=== PATIENT | male | born 1940 | race Caucasian/White ===

== ENCOUNTER → 2016-07-31 | Outpatient (CLI) | payer OTHER ==
--- NOTE | 2016-07-31 12:41 | DIAGNOSTIC IMAGING REPORT ---
LEFT ANKLE MIN 3 VIEWS CLINICAL HISTORY: LEFT FOOT AND ANKLE PAIN pain COMPARISON: None. DISCUSSION: Moderate soft tissue edema over both medial as well as lateral malleolus. Several small reactive osteophytes are present. No evidence for acute fracture or dislocation. There is no evidence for soft tissue swelling. IMPRESSION: Moderate soft tissue edema. Mild degenerative change. No acute process. Electronically signed by: Marquez Smith M.D. 07/31/2016 12:40 PM Dictated Date/Time: 07/31/2016 12:39 PM
--- NOTE | 2016-07-31 14:05 | DIAGNOSTIC IMAGING REPORT ---
LEFT FOOT MIN 3 VIEWS CLINICAL HISTORY: LEFT FOOT AND ANKLE PAIN trauma. Pain. COMPARISON: None. DISCUSSION: The bones and joint spaces appear intact. There is no evidence of fracture, dislocation or bony disease. There is no evidence for soft tissue swelling. IMPRESSION: Negative study. Electronically signed by: Marqeuz Smith M.D. 07/31/2016 2:03 PM Dictated Date/Time: 07/31/2016 2:02 PM
== END | disposition home or self-care (01) ==
LOC: C.RDSM 14:20
PROVIDERS: ATTEND Physician Assistant
DX: R52 Pain, unspecified (principal)